=== PATIENT | female | born 1970 | race Two or more races ===

== ENCOUNTER 2023-02-15 12:38 | Emergency (ER) | payer OTHER ==
[~2023-02-15] VITALS: Ht 160 cm; Wt 75.3 kg
[2023-02-15 13:12] VITALS: BP 128/77; TEMP 98.4
[2023-02-15] MEDS ORDERED: CLIN300C12 PO (13:30)
[2023-02-15] MEDS ORDERED: IBUPROFEN 400 MG TABLET PO ONE (13:30)
[2023-02-15] MEDS ORDERED: CLINDAMYCIN HCL 150 MG CAPSULE PO ONE (13:30)
[2023-02-15] MEDS ORDERED: CLINDAMYCIN HCL 150 MG CAPSULE ONE (13:42)
[2023-02-15] MEDS ORDERED: IBUPROFEN 400 MG TABLET ONE (13:42)
[2023-02-15 13:48] VITALS: O2SAT 98
== END 2023-02-15 13:48 | disposition home or self-care (01) ==
LOC: ER 12:51
DX: M79.644 Pain in right finger(s) (principal)

== ENCOUNTER 2024-05-11 03:38 | Emergency (ER) | payer SELFPAY ==
[~2024-05-11] VITALS: Ht 160 cm; Wt 72.6 kg
[~2024-05-11 03:38] MED LIST: CLIN300C12 PO
[2024-05-11 04:37] VITALS: BP 113/83; TEMP 98.3; O2SAT 99
[2024-05-11] MEDS ORDERED: TDAP [DIPH/PERTUSSIS/TET] 0.5 ML VIAL IM ONE (05:11)
[2024-05-11] MEDS ORDERED: AMOX-430 PO (05:12)
[2024-05-11] MEDS: TDAP [DIPH/PERTUSSIS/TET] 0.5 ML VIAL IM ONE (05:16)
== END 2024-05-11 05:17 | disposition home or self-care (01) ==
LOC: ER 03:44
DX: S61.032A Puncture wound without foreign body of left thumb without damage to nail, initial encounter (principal); S61.234A Puncture wound without foreign body of right ring finger without damage to nail, initial encounter; Z23 Encounter for immunization; W54.0XXA Bitten by dog, initial encounter; Y93.89 Activity, other specified; Y92.89 Other specified places as the place of occurrence of the external cause; Y99.8 Other external cause status
CPT/HCPCS: 90715